=== PATIENT | female | born 1985 | race Caucasian/White ===

== ENCOUNTER 2017-03-10 20:54 | Emergency (ER) | payer BC, OTHER ==
[2017-03-10] MEDS ORDERED: ONDANSETRON 4 MG/2 ML VIAL IVP STA (21:47)
[2017-03-10] MEDS ORDERED: SODIUM CHLORIDE 0.9% 1,000 ML IV STA (21:47)
[2017-03-10] MEDS ORDERED: MAG HYDROX/AL HYDROX/SIMETH 30 ML, HYOSCYAMINE ELIXIR 10 ML, CIMETIDINE HCL 300 MG PO STA ×3 (22:05)
[2017-03-10 22:25] LABS: Basophils % (A) 0 %; CHCM 33.7; Eosinophils # (A) 0.2 k/uL (0-0.7); Eosinophils % (A) 2 %; HCT 43.2 % (34.0-46.0); HDW 2.64; HGB 14.7 gm/dL (11.4-16.0); Luc # (Auto) 0.21; Luc % (Auto) 2; Lymphocytes # (A) 2.5 k/uL (1.0-4.8); Lymphocytes % (A) 22 %; MCH 29.4 pg (25.0-35.0); MCHC 34.1 g/dL (31.0-37.0); MCV 86.4 fL (80.0-100.0); Mean Platelet Volume 8.3; Monocytes # (A) 0.7 k/uL (0-1.0); Monocytes % (A) 6 %; Neutrophils # (A) 7.6 k/uL (1.3-7.7); Neutrophils % (A) 68 %; RDW 13.6 % (11.5-15.5); WBC 11.2 k/uL (3.8-10.6); WBC (Perox) 10.76
[2017-03-10 22:29] LABS: Appearance,Urine Clear (Clear); Bacteria,Urine Occasional /hpf; Bilirubin,Urine Negative (Negative); Glucose,Urine (UA) Negative (Negative); Ketones,Urine 1+ (Negative); Leukocyte Esterase,Urine Negative (Negative); Mucus,Urine Rare /hpf; Nitrite,Urine Negative (Negative); Particle Count 2077; Protein,Urine Negative (Negative); RBC,Urine 1 /hpf (0-5); Specific Gravity,Urine 1.005 (1.001-1.035); Squamous Epithelial Cell,Urine 2 /hpf (0-4); UA Billing (MACRO vs. MICRO) MICRO; Urobilinogen,Urine <2.0 mg/dL (<2.0); WBC,Urine <1 /hpf (0-5)
[2017-03-10 22:47] LABS: ALT 30 U/L (9-52); AST 21 U/L (14-36); Alkaline Phosphatase 50 U/L (38-126); Amylase 43 U/L (30-110); Anion Gap 12 mmol/L; Blood Urea Nitrogen 8 mg/dL (7-17); Calcium 9.5 mg/dL (8.4-10.2); Carbon Dioxide 23 mmol/L (22-30); Chloride 106 mmol/L (98-107); Glucose 89 mg/dL (74-99); Non-African American GFR(MDRD) >60 (>60 ml/min/1.73 sqM); Sodium 141 mmol/L (137-145); Total Bilirubin 0.7 mg/dL (0.2-1.3); Total Protein 7.5 g/dL (6.3-8.2)
[2017-03-10 22:48] LABS: Potassium 4.2 mmol/L (3.5-5.1)
[2017-03-10 23:27] VITALS: BP 126/69; PULSE 57; RESP 16; TEMP 98.6
--- NOTE | 2017-03-10 23:34 | ED ---
Nausea/Vomiting/Diarrhea HPI - General Chief complaint: Nausea/Vomiting/Diarrhea Stated complaint: HBP, abd pain Time Seen by Provider: 03/10/17 21:46 Source: patient, RN notes reviewed Mode of arrival: ambulatory Limitations: no limitations - History of Present Illness Initial comments: 31-year-old female presents emergency Department chief complaint of abdominal pain. Patient states she's had left upper quadrant abdominal pain, epigastric pain. Patient states that this it's worse when she eats. Patient states she has severe heartburn does not take any medications for this. Patient has a chest pain or shortness breath. Patient states she is concerned as she has high blood pressure and states that she was worried about it which makes her blood pressure worse. Patient states she takes lisinopril 10 mg daily. Patient denies any diarrhea constipation. Denies any fevers, chills. Patient states she has no other complaints - Related Data Home Medications Medication Instructions Recorded Confirmed ALPRAZolam [Xanax] 0.5 mg PO DAILY PRN 03/10/17 03/10/17 Lisinopril [Prinivil] 5 mg PO DAILY 03/10/17 03/10/17 Previous Rx's Medication Instructions Recorded Omeprazole 40 mg PO DAILY #30 capsule. 03/10/17 Allergies Allergy/AdvReac Type Severity Reaction Status Date / Time amoxicillin trihydrate Allergy Rash/Hives Verified 03/10/17 21:47 [From Augmentin] potassium clavulanate Allergy Rash/Hives Verified 03/10/17 21:47 [From Augmentin] Review of Systems ROS Statement: Those systems with pertinent positive or pertinent negative responses have been documented in the HPI. ROS Other: All systems not noted in ROS Statement are negative. Past Medical History Past Medical History: Hypertension History of Any Multi-Drug Resistant Organisms: None Reported Past Surgical History: Adenoidectomy, Section, Tonsillectomy Past Anesthesia/Blood Transfusion Reactions: Postoperative Nausea & Vomiting ( PONV) Past Psychological History: Anxiety, Depression Smoking Status: Current every day smoker Past Alcohol Use History: None Reported Past Drug Use History: None Reported - Past Family History Mother Family Medical History: Hypertension General Exam Limitations: no limitations General appearance: alert, in no apparent distress Head exam: Present: atraumatic, normocephalic, normal inspection Eye exam: Present: normal appearance, PERRL, EOMI. Absent: scleral icterus, conjunctival injection, periorbital swelling Respiratory exam: Present: normal lung sounds bilaterally. Absent: respiratory distress, wheezes, rales, rhonchi, stridor Cardiovascular Exam: Present: regular rate, normal rhythm, normal heart sounds. Absent: systolic murmur, diastolic murmur, rubs, gallop, clicks GI/Abdominal exam: Present: soft, tenderness (Moderate left upper quadrant tenderness, epigastric tenderness), normal bowel sounds. Absent: distended, guarding, rebound, rigid Back exam: Absent: CVA tenderness (R), CVA tenderness (L) Course Vital Signs 03/10/17 03/10/17 21:01 22:07 Temperature 99.0 F 98.6 F Pulse Rate 67 57 L Respiratory 18 16 Rate Blood Pressure 154/84 126/69 O2 Sat by Pulse 96 99 Oximetry Medical Decision Making - Medical Decision Making 31-year-old female presented for upper abdominal pain. Patient appears to have GERD, gastritis. Patient does feel better after GI cocktail. Patient lab work within normal limits. Patient will be discharged at this time. - Lab Data Result diagrams: 03/10/17 22:12 03/10/17 22:12 Lab Results 03/10/17 03/10/17 03/10/17 Range/Units 22:12 22:12 22:12 WBC 11.2 H (3.8-10.6) k/uL RBC 5.00 (3.80-5.40) m/uL Hgb 14.7 (11.4-16.0) gm/dL Hct 43.2 (34.0-46.0) % MCV 86.4 (80.0-100.0) fL MCH 29.4 (25.0-35.0) pg MCHC 34.1 (31.0-37.0) g/dL RDW 13.6 (11.5-15.5) % Plt Count 213 (150-450) k/uL Neutrophils % 68 % Lymphocytes % 22 % Monocytes % 6 % Eosinophils % 2 % Basophils % 0 % Neutrophils # 7.6 (1.3-7.7) k/uL Lymphocytes # 2.5 (1.0-4.8) k/uL Monocytes # 0.7 (0-1.0) k/uL Eosinophils # 0.2 (0-0.7) k/uL Basophils # 0.0 (0-0.2) k/uL Sodium 141 (137-145) mmol/L Potassium 4.2 (3.5-5.1) mmol/L Chloride 106 (98-107) mmol/L Carbon Dioxide 23 (22-30) mmol/L Anion Gap 12 mmol/L BUN 8 (7-17) mg/dL Creatinine 0.60 (0.52-1.04) mg/dL Est GFR (MDRD) Af Amer >60 (>60 ml/min/1.73 sqM) Est GFR (MDRD) Non-Af >60 (>60 ml/min/1.73 sqM) Glucose 89 (74-99) mg/dL Calcium 9.5 (8.4-10.2) mg/dL Total Bilirubin 0.7 (0.2-1.3) mg/dL AST 21 (14-36) U/L ALT 30 (9-52) U/L Alkaline Phosphatase 50 (38-126) U/L Total Protein 7.5 (6.3-8.2) g/dL Albumin 4.5 (3.5-5.0) g/dL Amylase 43 (30-110) U/L Lipase 53 (23-300) U/L Urine Color Urine Appearance (Clear) Urine pH (5.0-8.0) Ur Specific [place] (1.001-1.035) Urine Protein (Negative) Urine Glucose (UA) (Negative) Urine Ketones (Negative) Urine Blood (Negative) Urine Nitrite (Negative) Urine Bilirubin (Negative) Urine Urobilinogen (<2.0) mg/dL Ur Leukocyte Esterase (Negative) Urine RBC (0-5) /hpf Urine WBC (0-5) /hpf Ur Squamous Epith Cells (0-4) /hpf Urine Bacteria (None) /hpf Urine Mucus (None) /hpf Urine HCG, Qual Not Detected (Not Detectd) 03/10/17 Range/Units 22:12 WBC (3.8-10.6) k/uL RBC (3.80-5.40) m/uL Hgb (11.4-16.0) gm/dL Hct (34.0-46.0) % MCV (80.0-100.0) fL MCH (25.0-35.0) pg MCHC (31.0-37.0) g/dL RDW (11.5-15.5) % Plt Count (150-450) k/uL Neutrophils % % Lymphocytes % % Monocytes % % Eosinophils % % Basophils % % Neutrophils # (1.3-7.7) k/uL Lymphocytes # (1.0-4.8) k/uL Monocytes # (0-1.0) k/uL Eosinophils # (0-0.7) k/uL Basophils # (0-0.2) k/uL Sodium (137-145) mmol/L Potassium (3.5-5.1) mmol/L Chloride (98-107) mmol/L Carbon Dioxide (22-30) mmol/L Anion Gap mmol/L BUN (7-17) mg/dL Creatinine (0.52-1.04) mg/dL Est GFR (MDRD) Af Amer (>60 ml/min/1.73 sqM) Est GFR (MDRD) Non-Af (>60 ml/min/1.73 sqM) Glucose (74-99) mg/dL Calcium (8.4-10.2) mg/dL Total Bilirubin (0.2-1.3) mg/dL AST (14-36) U/L ALT (9-52) U/L Alkaline Phosphatase (38-126) U/L Total Protein (6.3-8.2) g/dL Albumin (3.5-5.0) g/dL Amylase (30-110) U/L Lipase (23-300) U/L Urine Color Light Yellow Urine Appearance Clear (Clear) Urine pH 5.0 (5.0-8.0) Ur Specific [place] 1.005 (1.001-1.035) Urine Protein Negative (Negative) Urine Glucose (UA) Negative (Negative) Urine Ketones 1+ H (Negative) Urine Blood Small H (Negative) Urine Nitrite Negative (Negative) Urine Bilirubin Negative (Negative) Urine Urobilinogen <2.0 (<2.0) mg/dL Ur Leukocyte Esterase Negative (Negative) Urine RBC 1 (0-5) /hpf Urine WBC <1 (0-5) /hpf Ur Squamous Epith Cells 2 (0-4) /hpf Urine Bacteria Occasional H (None) /hpf Urine Mucus Rare H (None) /hpf Urine HCG, Qual (Not Detectd) Disposition Clinical Impression: Gastritis, GERD (gastroesophageal reflux disease) Disposition: HOME SELF-CARE Condition: Stable Instructions: Gastritis (ED) Additional Instructions: Please return to the Emergency Department if symptoms worsen or any other concerns. Prescriptions: Omeprazole 40 mg PO DAILY #30 capsule. Time of Disposition: 23:33
== END 2017-03-10 23:52 | disposition home or self-care (01) ==
LOC: EC 20:54
DX: K29.70 Gastritis, unspecified, without bleeding (principal); K21.9 Gastro-esophageal reflux disease without esophagitis; I10 Essential (primary) hypertension; F32.9 Major depressive disorder, single episode, unspecified; F41.9 Anxiety disorder, unspecified; F17.200 Nicotine dependence, unspecified, uncomplicated; Z79.899 Other long term (current) drug therapy; Z88.0 Allergy status to penicillin
CPT/HCPCS: 36415; 80053; 82150; 83690; 85025; 81001; 81025; 99284; 96374; 96361; J2405

== ENCOUNTER 2017-03-19 11:41 | Emergency (ER) | payer OTHER ==
[2017-03-19 12:00] VITALS: RESP 18
[2017-03-19] MEDS ORDERED: SODIUM CHLORIDE 0.9% 1,000 ML IV ONE (13:28)
[2017-03-19] MEDS ORDERED: MECLIZINE 12.5 MG TAB PO STA (13:42)
--- NOTE | 2017-03-19 13:53 | ED ---
General Adult HPI - General Chief complaint: Dizziness Stated complaint: DIZZINESS, BLOOD PRESSURE ISSUE Time Seen by Provider: 03/19/17 13:27 Source: patient, RN notes reviewed, old records reviewed Mode of arrival: wheelchair Limitations: no limitations - History of Present Illness Initial comments: 31-year-old female presenting for dizziness. Patient states she felt like she is having lightheadedness like she was going to pass out. She states that she is concerned that this is due to her blood pressure. She states over the past month been in the ER as well as her PCPs office due to changing blood pressures. She is on lisinopril 5 mg, and was increased to 10 mg a few days ago by her PCP. She states she has not taken the increased dose yet at this point. She denies any chest pain or shortness of breath. She denies syncope. - Related Data Home Medications Medication Instructions Recorded Confirmed ALPRAZolam [Xanax] 0.5 mg PO DAILY PRN 03/10/17 03/19/17 Lisinopril [Prinivil] 5 mg PO DAILY 03/10/17 03/19/17 Previous Rx's Medication Instructions Recorded Omeprazole 40 mg PO DAILY #30 capsule. 03/10/17 Meclizine [Antivert] 25 mg PO Q6HR PRN #16 tab 03/19/17 Allergies Allergy/AdvReac Type Severity Reaction Status Date / Time amoxicillin trihydrate Allergy Rash/Hives Verified 03/10/17 21:47 [From Augmentin] potassium clavulanate Allergy Rash/Hives Verified 03/10/17 21:47 [From Augmentin] Review of Systems ROS Statement: Those systems with pertinent positive or pertinent negative responses have been documented in the HPI. ROS Other: All systems not noted in ROS Statement are negative. Past Medical History Past Medical History: Hypertension History of Any Multi-Drug Resistant Organisms: None Reported Past Surgical History: Adenoidectomy, Section, Tonsillectomy Past Anesthesia/Blood Transfusion Reactions: Postoperative Nausea & Vomiting ( PONV) Past Psychological History: Anxiety, Depression Smoking Status: Current every day smoker Past Alcohol Use History: None Reported Past Drug Use History: None Reported - Past Family History Mother Family Medical History: Hypertension General Exam - General Exam Comments Initial Comments: General: Awake and Alert. No acute distress. Does not appear acutely ill. Obese. Eyes: KHANG, EOM intact. No nystagmus. No scleral icterus. HENT: Atraumatic, normocephalic. Mucous membranes moist. Trachea midline. Neck: The neck is supple, there is no tenderness or JVD. Cardiovascular: Regular rate and rhythm. No murmur, rub, or gallop is appreciated. Distal pulses intact. Respiratory: Lungs are clear to auscultation bilaterally. No wheezes, rales, rhonchi. No respiratory distress. Gastrointestinal: Soft, Nontender. No rebound or guarding. Non-distended. No masses or organomegaly noted. No CVA tenderness. Musculoskeletal: No tenderness. Normal ROM. No gross deformity. No strength deficits. Neurological: A&Ox3. CN II-XII grossly intact, There are no obvious motor or sensory deficits. Coordination appears grossly intact. Speech is normal. Skin: Skin is warm and dry and no rashes or lesions are noted. Psychiatric: Cooperative. Appears anxious. Normal affect. Limitations: no limitations Course Vital Signs 03/19/17 03/19/17 11:58 15:45 Temperature 97.8 F 97.9 F Pulse Rate 71 64 Respiratory 18 18 Rate Blood Pressure 165/83 164/94 O2 Sat by Pulse 100 97 Oximetry EKG Findings - EKG Comments: EKG Findings:: EKG 13:46. Sinus rhythm. Rate 49. NE 150. QRS 106. QT/QTC 438/395. Normal axis. No STEMI. Normal EKG. Medical Decision Making - Medical Decision Making 31-year-old female presenting for dizziness and hypertension. Patient with noted hypertension. She does have a history of hypertension and is on lisinopril for this. She was recently increased on her dose of this but has not started the new dose yet. Exam is grossly unremarkable. There are no focal neurological deficits. Patient is concerned she is having a stroke. Reassured that this is very unlikely given her benign physical exam and overall low risk factors. Laboratory grossly unremarkable. UA without evidence of infection. Patient was given fluids and Antivert. On reevaluation she states she is feeling improved. Discussed that her blood pressure fluctuations and symptoms are more likely consistent with anxiety. However, discussed that she does have underlying hypertension which does require further management. Recommend increasing her dose to the 10 mg lisinopril daily. Discussed close follow-up with her PCP for further BP management. Rx for antivert provided as this helped in the ED. Discussed concerning signs symptoms for immediate return to the ED. Patient and family agreeable to plan and discharge home. - Lab Data Result diagrams: 03/19/17 14:00 03/19/17 14:00 Lab Results 03/19/17 03/19/17 03/19/17 Range/Units 14:00 14:00 14:00 WBC 9.5 (3.8-10.6) k/uL RBC 5.00 (3.80-5.40) m/uL Hgb 14.4 (11.4-16.0) gm/dL Hct 44.8 (34.0-46.0) % MCV 89.7 (80.0-100.0) fL MCH 28.9 (25.0-35.0) pg MCHC 32.2 (31.0-37.0) g/dL RDW 13.6 (11.5-15.5) % Plt Count 225 (150-450) k/uL Neutrophils % 74 % Lymphocytes % 17 % Monocytes % 6 % Eosinophils % 1 % Basophils % 1 % Neutrophils # 7.0 (1.3-7.7) k/uL Lymphocytes # 1.6 (1.0-4.8) k/uL Monocytes # 0.5 (0-1.0) k/uL Eosinophils # 0.1 (0-0.7) k/uL Basophils # 0.1 (0-0.2) k/uL Sodium 139 (137-145) mmol/L Potassium 4.2 (3.5-5.1) mmol/L Chloride 106 (98-107) mmol/L Carbon Dioxide 22 (22-30) mmol/L Anion Gap 11 mmol/L BUN 8 (7-17) mg/dL Creatinine 0.67 (0.52-1.04) mg/dL Est GFR (MDRD) Af Amer >60 (>60 ml/min/1.73 sqM) Est GFR (MDRD) Non-Af >60 (>60 ml/min/1.73 sqM) Glucose 94 (74-99) mg/dL Calcium 9.6 (8.4-10.2) mg/dL TSH 0.539 (0.465-4.680) mIU/L Urine Color Urine Appearance (Clear) Urine pH (5.0-8.0) Ur Specific [place] (1.001-1.035) Urine Protein (Negative) Urine Glucose (UA) (Negative) Urine Ketones (Negative) Urine Blood (Negative) Urine Nitrite (Negative) Urine Bilirubin (Negative) Urine Urobilinogen (<2.0) mg/dL Ur Leukocyte Esterase (Negative) Urine RBC (0-5) /hpf Urine WBC (0-5) /hpf Ur Squamous Epith Cells (0-4) /hpf Urine HCG, Qual Not Detected (Not Detectd) 03/19/17 Range/Units 14:00 WBC (3.8-10.6) k/uL RBC (3.80-5.40) m/uL Hgb (11.4-16.0) gm/dL Hct (34.0-46.0) % MCV (80.0-100.0) fL MCH (25.0-35.0) pg MCHC (31.0-37.0) g/dL RDW (11.5-15.5) % Plt Count (150-450) k/uL Neutrophils % % Lymphocytes % % Monocytes % % Eosinophils % % Basophils % % Neutrophils # (1.3-7.7) k/uL Lymphocytes # (1.0-4.8) k/uL Monocytes # (0-1.0) k/uL Eosinophils # (0-0.7) k/uL Basophils # (0-0.2) k/uL Sodium (137-145) mmol/L Potassium (3.5-5.1) mmol/L Chloride (98-107) mmol/L Carbon Dioxide (22-30) mmol/L Anion Gap mmol/L BUN (7-17) mg/dL Creatinine (0.52-1.04) mg/dL Est GFR (MDRD) Af Amer (>60 ml/min/1.73 sqM) Est GFR (MDRD) Non-Af (>60 ml/min/1.73 sqM) Glucose (74-99) mg/dL Calcium (8.4-10.2) mg/dL TSH (0.465-4.680) mIU/L Urine Color Colorless Urine Appearance Clear (Clear) Urine pH 5.5 (5.0-8.0) Ur Specific [place] 1.001 (1.001-1.035) Urine Protein Negative (Negative) Urine Glucose (UA) Negative (Negative) Urine Ketones Negative (Negative) Urine Blood Moderate H (Negative) Urine Nitrite Negative (Negative) Urine Bilirubin Negative (Negative) Urine Urobilinogen <2.0 (<2.0) mg/dL Ur Leukocyte Esterase Negative (Negative) Urine RBC <1 (0-5) /hpf Urine WBC <1 (0-5) /hpf Ur Squamous Epith Cells <1 (0-4) /hpf Urine HCG, Qual (Not Detectd) - EKG Data -: EKG Interpreted by Me EKG shows normal: sinus rhythm Rate: normal Disposition Clinical Impression: Dizziness, HTN (hypertension), Anxiety Disposition: HOME SELF-CARE Condition: Stable Instructions: Dizziness (ED), Chronic Hypertension (ED), Anxiety (ED) Additional Instructions: Please start your higher dose of Lisinopril. Prescriptions: Meclizine [Antivert] 25 mg PO Q6HR PRN #16 tab PRN Reason: dizziness Referrals: Khoa Chiu MD [Primary Care Provider] - 1-2 days Time of Disposition: 15:35
[2017-03-19 14:21] LABS: Basophils # (A) 0.1 k/uL (0-0.2); Basophils % (A) 1 %; CH 29.8; CHCM 33.3; Eosinophils # (A) 0.1 k/uL (0-0.7); Eosinophils % (A) 1 %; HCT 44.8 % (34.0-46.0); HGB 14.4 gm/dL (11.4-16.0); Luc # (Auto) 0.16; Luc % (Auto) 2; Lymphocytes # (A) 1.6 k/uL (1.0-4.8); Lymphocytes % (A) 17 %; MCH 28.9 pg (25.0-35.0); MCHC 32.2 g/dL (31.0-37.0); MCV 89.7 fL (80.0-100.0); Mean Platelet Volume 8.9; Monocytes # (A) 0.5 k/uL (0-1.0); Monocytes % (A) 6 %; Neutrophils % (A) 74 %; RDW 13.6 % (11.5-15.5); WBC 9.5 k/uL (3.8-10.6); WBC (Perox) 9.85
[2017-03-19 14:27] LABS: Appearance,Urine Clear (Clear); Bilirubin,Urine Negative (Negative); Glucose,Urine (UA) Negative (Negative); Ketones,Urine Negative (Negative); Leukocyte Esterase,Urine Negative (Negative); Nitrite,Urine Negative (Negative); PH, Urine 5.5 (5.0-8.0); Particle Count 379; Protein,Urine Negative (Negative); RBC,Urine <1 /hpf (0-5); Specific Gravity,Urine 1.001 (1.001-1.035); Squamous Epithelial Cell,Urine <1 /hpf (0-4); UA Billing (MACRO vs. MICRO) MICRO; Urobilinogen,Urine <2.0 mg/dL (<2.0); WBC,Urine <1 /hpf (0-5)
[2017-03-19 14:33] LABS: Anion Gap 11 mmol/L; Blood Urea Nitrogen 8 mg/dL (7-17); Calcium 9.6 mg/dL (8.4-10.2); Carbon Dioxide 22 mmol/L (22-30); Chloride 106 mmol/L (98-107); Glucose 94 mg/dL (74-99); Non-African American GFR(MDRD) >60 (>60 ml/min/1.73 sqM); Sodium 139 mmol/L (137-145)
[2017-03-19 14:34] LABS: Potassium 4.2 mmol/L (3.5-5.1)
[2017-03-19 15:46] VITALS: BP 164/94; PULSE 64; TEMP 97.9
== END 2017-03-19 15:46 | disposition home or self-care (01) ==
LOC: EC 11:41
DX: I10 Essential (primary) hypertension (principal); F41.9 Anxiety disorder, unspecified; E66.9 Obesity, unspecified; F17.200 Nicotine dependence, unspecified, uncomplicated; Z79.899 Other long term (current) drug therapy; Z88.0 Allergy status to penicillin; Z82.49 Family history of ischemic heart disease and other diseases of the circulatory system; Z68.38 Body mass index [BMI] 38.0-38.9, adult
CPT/HCPCS: 36415; 80048; 81001; 81025; 84443; 85025; 93005; 96360; 96361; 99284

== ENCOUNTER 2017-03-20 09:11 | Emergency (ER) | payer OTHER ==
[2017-03-20 09:29] VITALS: TEMP 97.8
--- NOTE | 2017-03-20 11:23 | ED ---
General Adult HPI - General Chief complaint: Psychiatric Symptoms Stated complaint: MENTAL HEALTH, NERVOUS BREAKDOWN Time Seen by Provider: 03/20/17 09:51 Source: patient, RN notes reviewed Mode of arrival: ambulatory Limitations: no limitations - History of Present Illness Initial comments: Patient 31-year-old female who presents emergency room today with a chief complaint of feeling like she's having a nervous breakdown. She does admit the past 2 weeks she's felt like her blood pressure up and down. She states she's had anxiety. She admits that she's felt numbness tingling to her arms and legs at times. States symptoms seem to come and go. She states she's had more stress. States been dealing with blood pressure being up and down his been having addressed by the family doctor started new medication dose. Patient's been seen here in the emergency room for these complaints most recently just yesterday. At this time she feels that is not beneficial to have any other lab work done. She states she would like to talk to somebody about these feelings. Patient denies any recent fever, chills, shortness of breath, chest pain, back pain, abdominal pain, nausea or vomiting, dysuria or hematuria, constipation or diarrhea, headaches or visual changes, or any other complaints. - Related Data Home Medications Medication Instructions Recorded Confirmed ALPRAZolam [Xanax] 0.5 mg PO DAILY PRN 03/10/17 03/20/17 Lisinopril [Prinivil] 5 mg PO DAILY 03/10/17 03/20/17 Previous Rx's Medication Instructions Recorded Omeprazole 40 mg PO DAILY #30 capsule. 03/10/17 Meclizine [Antivert] 25 mg PO Q6HR PRN #16 tab 03/19/17 Allergies Allergy/AdvReac Type Severity Reaction Status Date / Time amoxicillin trihydrate Allergy Rash/Hives Verified 03/20/17 10:02 [From Augmentin] potassium clavulanate Allergy Rash/Hives Verified 03/20/17 10:02 [From Augmentin] Review of Systems ROS Statement: Those systems with pertinent positive or pertinent negative responses have been documented in the HPI. ROS Other: All systems not noted in ROS Statement are negative. Past Medical History Past Medical History: Hypertension History of Any Multi-Drug Resistant Organisms: None Reported Past Surgical History: Adenoidectomy, Section, Tonsillectomy Past Anesthesia/Blood Transfusion Reactions: Postoperative Nausea & Vomiting ( PONV) Past Psychological History: Anxiety, Depression Smoking Status: Current every day smoker Past Alcohol Use History: None Reported Past Drug Use History: None Reported - Past Family History Mother Family Medical History: Hypertension General Exam - General Exam Comments Initial Comments: General: The patient is awake and alert, in no distress, and does not appear acutely ill. Eye: Pupils are equal, round and reactive to light, extra-ocular movements are intact. No nystagmus. There is normal conjunctiva bilaterally. No signs of icterus. Ears, nose, mouth and throat: There are moist mucous membranes and no oral lesions. Neck: The neck is supple, there is no tenderness or JVD. Cardiovascular: There is a regular rate and rhythm. No murmur, rub or gallop is appreciated. Respiratory: Lungs are clear to auscultation, respirations are non-labored, breath sounds are equal. No wheezes, stridor, rales, or rhonchi. Gastrointestinal: Soft, non-distended, non-tender abdomen without masses or organomegaly noted. There is no rebound or guarding present. No CVA tenderness. Bowel sounds are unremarkable. Musculoskeletal: Normal ROM, no tenderness. Strength 5/5. Sensation intact. Pulses equal bilaterally 2+. Neurological: A&O x 3. CN II-XII intact, There are no obvious motor or sensory deficits. Coordination appears grossly intact. Speech is normal. Skin: Skin is warm and dry and no rashes or lesions are noted. Psychiatric: Cooperative Limitations: no limitations Course Vital Signs 03/20/17 03/20/17 09:24 10:47 Temperature 97.8 F Pulse Rate 72 Respiratory 20 Rate Blood Pressure 177/88 O2 Sat by Pulse 94 L Oximetry - Reevaluation(s) Reevaluation #1: 03/20/17 10:02 patient examined here the emergency room. Options were discussed with patient about further labs and IV. She states she been drinking plenty of water does not feel that she's dehydrated. She states declined any other testing. She is agreeable to talk to psych services. Her labs and chart were reviewed from 1 day ago Medical Decision Making - Medical Decision Making Patient reexamined at this time shows no signs of distress. Patient's been seen by mental health. They recommended outpatient follow-up outpatient. Patient is also advised to follow-up with her family doctor. Advised to continue to keep a long blood pressures. Advised to continue Antivert that was prescribed to her yesterday for some of the symptoms. Advised return for any other concerns. Patient mother at bedside state understanding. - Lab Data Lab Results 03/20/17 Range/Units 11:05 Urine Opiates Screen Not Detected (NotDetected) Ur Oxycodone Screen Not Detected (NotDetected) Urine Methadone Screen Not Detected (NotDetected) Ur Propoxyphene Screen Not Detected (NotDetected) Ur Barbiturates Screen Not Detected (NotDetected) U Tricyclic Antidepress Not Detected (NotDetected) Ur Phencyclidine Scrn Not Detected (NotDetected) Ur Amphetamines Screen Not Detected (NotDetected) U Methamphetamines Scrn Not Detected (NotDetected) U Benzodiazepines Scrn Not Detected (NotDetected) Urine Cocaine Screen Not Detected (NotDetected) U Marijuana (THC) Screen Not Detected (NotDetected) Disposition Clinical Impression: HTN (hypertension), Anxiety Disposition: HOME SELF-CARE Condition: Good Instructions: Anxiety (ED) Additional Instructions: Please use medications that were previously prescribed. Please follow-up the family doctor and keep a log of blood pressure as discussed. Please return to emergency room if the symptoms increase or worsen or for any other concerns. Time of Disposition: 12:47
[2017-03-20 13:30] VITALS: BP 143/73; PULSE 58; RESP 18
== END 2017-03-20 13:30 | disposition home or self-care (01) ==
LOC: EC 09:11
DX: I10 Essential (primary) hypertension (principal); F41.9 Anxiety disorder, unspecified; F32.9 Major depressive disorder, single episode, unspecified; F17.200 Nicotine dependence, unspecified, uncomplicated; Z79.899 Other long term (current) drug therapy; Z88.0 Allergy status to penicillin
CPT/HCPCS: 80306; 82075; 99284

== ENCOUNTER → 2017-05-01 | Outpatient (CLI) | payer OTHER ==
[2017-05-01 17:02] LABS: Basophils % (A) 0 %; CH 29.7; CHCM 34.2; Eosinophils # (A) 0.1 k/uL (0-0.7); Eosinophils % (A) 2 %; HCT 41.4 % (34.0-46.0); HDW 2.76; Luc # (Auto) 0.14; Luc % (Auto) 2; Lymphocytes # (A) 1.8 k/uL (1.0-4.8); Lymphocytes % (A) 28 %; MCH 29.5 pg (25.0-35.0); MCHC 33.8 g/dL (31.0-37.0); MCV 87.2 fL (80.0-100.0); Mean Platelet Volume 8.2; Monocytes # (A) 0.4 k/uL (0-1.0); Monocytes % (A) 6 %; Neutrophils # (A) 4.1 k/uL (1.3-7.7); Neutrophils % (A) 62 %; RBC 4.75 m/uL (3.80-5.40); RDW 13.1 % (11.5-15.5); WBC 6.5 k/uL (3.8-10.6); WBC (Perox) 6.83
--- NOTE | 2017-05-01 17:03 | XR ---
EXAMINATION TYPE: XR chest 2V DATE OF EXAM: 05/01/2017 COMPARISON: 09/20/2015 HISTORY: Left lower chest pain and shortness of breath TECHNIQUE: Frontal and lateral views of the chest are obtained. FINDINGS: There is no focal air space opacity, pleural effusion, or pneumothorax seen. The cardiac silhouette size is within normal limits. The osseous structures are intact. Minimal degenerative ch anges are appreciated of the visualized thoracic spine. IMPRESSION: No acute cardiopulmonary process.
[2017-05-01 17:30] LABS: ALT 41 U/L (9-52); AST 17 U/L (14-36); Alkaline Phosphatase 47 U/L (38-126); Anion Gap 9 mmol/L; Blood Urea Nitrogen 8 mg/dL (7-17); Calcium 9.5 mg/dL (8.4-10.2); Carbon Dioxide 29 mmol/L (22-30); Chloride 106 mmol/L (98-107); Glucose 91 mg/dL (74-99); Non-African American GFR(MDRD) >60 (>60 ml/min/1.73 sqM); Potassium 3.9 mmol/L (3.5-5.1); Sodium 144 mmol/L (137-145); Total Bilirubin 0.4 mg/dL (0.2-1.3); Total Protein 6.6 g/dL (6.3-8.2)
[2017-05-01 20:47] LABS: Hemoglobin A1C 5.1 % (4.2-6.1)
== END | disposition home or self-care (01) ==
LOC: LABWHC1 16:29
PROVIDERS: ATTEND Family Medicine
DX: J98.4 Other disorders of lung (principal); R10.9 Unspecified abdominal pain; I10 Essential (primary) hypertension
CPT/HCPCS: 36415; 71020; 80053; 83036; 83690; 84439; 84443; 85025; 86677

== ENCOUNTER 2017-08-01 13:28 | Emergency (ER) | payer OTHER ==
[2017-08-01] MEDS ORDERED: MORPHINE SULFATE 4 MG/ML SYRINGE IV STA (14:03)
[2017-08-01 14:36] LABS: Basophils % (A) 0 %; CH 29.4; CHCM 33.7; Eosinophils # (A) 0.1 k/uL (0-0.7); Eosinophils % (A) 2 %; HCT 41.8 % (34.0-46.0); HDW 2.69; HGB 14.2 gm/dL (11.4-16.0); Luc # (Auto) 0.11; Luc % (Auto) 2; Lymphocytes # (A) 1.8 k/uL (1.0-4.8); Lymphocytes % (A) 24 %; MCH 29.9 pg (25.0-35.0); MCHC 34.1 g/dL (31.0-37.0); MCV 87.6 fL (80.0-100.0); Mean Platelet Volume 8.9; Monocytes # (A) 0.4 k/uL (0-1.0); Monocytes % (A) 5 %; Neutrophils % (A) 68 %; RBC 4.77 m/uL (3.80-5.40); WBC 7.4 k/uL (3.8-10.6); WBC (Perox) 7.49
[2017-08-01 14:41] LABS: Partial Thromboplastin Time 23.9 sec (22.0-30.0); Prothrombin Time 10.2 sec (9.0-12.0)
[2017-08-01 14:44] LABS: ALT 30 U/L (9-52); AST 12 U/L (14-36); Alkaline Phosphatase 41 U/L (38-126); Anion Gap 7 mmol/L; Blood Urea Nitrogen 13 mg/dL (7-17); Calcium 9.3 mg/dL (8.4-10.2); Carbon Dioxide 27 mmol/L (22-30); Chloride 107 mmol/L (98-107); Glucose 85 mg/dL (74-99); Magnesium 1.9 mg/dL (1.6-2.3); Non-African American GFR(MDRD) >60 (>60 ml/min/1.73 sqM); Potassium 4.2 mmol/L (3.5-5.1); Sodium 141 mmol/L (137-145); Total Bilirubin 0.3 mg/dL (0.2-1.3); Total Protein 6.5 g/dL (6.3-8.2)
[2017-08-01 14:46] LABS: Appearance,Urine Clear (Clear); Bilirubin,Urine Negative (Negative); Glucose,Urine (UA) Negative (Negative); Ketones,Urine Negative (Negative); Leukocyte Esterase,Urine Negative (Negative); Nitrite,Urine Negative (Negative); Protein,Urine Negative (Negative); Specific Gravity,Urine 1.004 (1.001-1.035); UA Billing (MACRO vs. MICRO) CHEM; Urobilinogen,Urine <2.0 mg/dL (<2.0)
[2017-08-01] MEDS: ONDANSETRON 4 MG/2 ML VIAL IVP STA ×2 (14:46→14:49)
[2017-08-01] MEDS ORDERED: ACETAMINOPHEN TAB 500 MG TAB PO STA (14:50)
[2017-08-01] MEDS ORDERED: NITROGLYCERIN OINT 1 INCH/GM PACKET TOPICAL STA (14:51)
[2017-08-01 14:59] LABS: Creatine Kinase 39 U/L (30-135)
[2017-08-01 15:13] LABS: Creatine Kinase MB <0.2 ng/mL (0.0-2.4); Troponin I <0.012 ng/mL (0.000-0.034)
--- NOTE | 2017-08-01 15:19 | XR ---
EXAMINATION TYPE: XR chest 2V DATE OF EXAM: 08/01/2017 COMPARISON: 05/01/2017 TECHNIQUE: PA and lateral views submitted. HISTORY: Chest pain FINDINGS: Heart size stable. No pleural effusion or pneumothorax. No overt failure. Linear changes in the left suprahilar region. Hypertrophic and degenerative change of the spine. IMPRESSION: 1. Linear left perihilar changes may been the basis of atelectasis rather than early infiltrate. Nori elate clinically.
--- NOTE | 2017-08-01 15:31 | ED ---
Recheck HPI - General Chief Complaint: Recheck/Abnormal Lab/Rx Stated Complaint: HBP Time Seen by Provider: 08/01/17 13:41 Source: patient Mode of arrival: ambulatory Limitations: no limitations - History of Present Illness Initial Comments: ALLERGIES she is old female comes in with the high blood pressure, she has a history of hypertension mostly her blood pressure stays around 1:30 systolic with the lisinopril on board today her blood pressure was 186, she was feeling dizzy and she also had a chest pain also complaining about the pain in her left jaw, she denies any no pleuritic chest pain no abdominal pain no frequency urgency dysuria no sinus symptoms of TIA or CVA or. Chest pain been there for 2 days - Related Data Home Medications Medication Instructions Recorded Confirmed Lisinopril [Prinivil] 10 mg PO DAILY@1400 03/10/17 08/01/17 Allergies Allergy/AdvReac Type Severity Reaction Status Date / Time amoxicillin trihydrate Allergy Rash/Hives Verified 08/01/17 14:04 [From Augmentin] potassium clavulanate Allergy Rash/Hives Verified 08/01/17 14:04 [From Augmentin] Review of Systems ROS Statement: Those systems with pertinent positive or pertinent negative responses have been documented in the HPI. ROS Other: All systems not noted in ROS Statement are negative. Past Medical History Past Medical History: Hypertension History of Any Multi-Drug Resistant Organisms: None Reported Past Surgical History: Adenoidectomy, Section, Tonsillectomy Past Anesthesia/Blood Transfusion Reactions: Postoperative Nausea & Vomiting ( PONV) Past Psychological History: Anxiety, Depression Smoking Status: Current every day smoker Past Alcohol Use History: None Reported Past Drug Use History: None Reported - Past Family History Mother Family Medical History: Hypertension General Exam - General Exam Comments Initial Comments: General: The patient is awake and alert, in no distress, and does not appear acutely ill. Skin: Skin is warm and dry and no rashes or lesions are noted. Eye: Pupils are equal, round and reactive to light, extra-ocular movements are intact; there is normal conjunctiva bilaterally. Ears, nose, mouth and throat: There are moist mucous membranes and no oral lesions. Neck: The neck is supple, there is no tenderness or JVD. Cardiovascular: There is a regular rate and rhythm. No murmur, rub or gallop is appreciated. Respiratory: To auscultation bilateral, no wheezing no rhonchi no distress respiratory avendano noticed Gastrointestinal: Soft, non-distended, non-tender abdomen without masses or organomegaly noted. There is no rebound or guarding present. Bowel sounds are unremarkable. Back: There is no tenderness to palpation in the midline. There is no obvious deformity. Musculoskeletal: Normal ROM, no tenderness, There is no pedal edema. There is no calf tenderness or swelling. No cords were appreciated. Neurological: CN II-XII intact, Cranial nerves III through XII are intact. There are no obvious motor or sensory deficits. Coordination appears grossly intact. Speech is normal. Psychiatric: Cooperative, appropriate mood & affect, normal judgment. Limitations: no limitations Course Vital Signs 08/01/17 08/01/17 08/01/17 13:29 13:54 15:03 Temperature 97.4 F L Pulse Rate 61 56 L Respiratory 18 17 Rate Blood Pressure 186/84 170/82 160/83 O2 Sat by Pulse 100 99 Oximetry EKG is sinus bradycardia with sinus arrhythmia ventricular rate is 53 [place] interval is 164 QRS duration is 1 or 2 QT/QTc is 442/414 review of this EKG does not reveal any ST elevation OR depression She was reassessed at 11/14/1931, CBC, d-dimer, compressive metabolic panel, troponin, EKG and UA are all within normal range so is the chest x-ray. She is advised to follow with the all cardiology associates for further evaluation of for chest pain and better control of her blood pressure Medical Decision Making - Lab Data Result diagrams: 08/01/17 14:25 08/01/17 14:25 Lab Results 08/01/17 08/01/17 08/01/17 Range/Units 14:15 14:25 14:25 WBC 7.4 (3.8-10.6) k/uL RBC 4.77 (3.80-5.40) m/uL Hgb 14.2 (11.4-16.0) gm/dL Hct 41.8 (34.0-46.0) % MCV 87.6 (80.0-100.0) fL MCH 29.9 (25.0-35.0) pg MCHC 34.1 (31.0-37.0) g/dL RDW 13.0 (11.5-15.5) % Plt Count 195 (150-450) k/uL Neutrophils % 68 % Lymphocytes % 24 % Monocytes % 5 % Eosinophils % 2 % Basophils % 0 % Neutrophils # 5.0 (1.3-7.7) k/uL Lymphocytes # 1.8 (1.0-4.8) k/uL Monocytes # 0.4 (0-1.0) k/uL Eosinophils # 0.1 (0-0.7) k/uL Basophils # 0.0 (0-0.2) k/uL PT (9.0-12.0) sec INR (<1.2) APTT (22.0-30.0) sec Sodium (137-145) mmol/L Potassium (3.5-5.1) mmol/L Chloride (98-107) mmol/L Carbon Dioxide (22-30) mmol/L Anion Gap mmol/L BUN (7-17) mg/dL Creatinine (0.52-1.04) mg/dL Est GFR (MDRD) Af Amer (>60 ml/min/1.73 sqM) Est GFR (MDRD) Non-Af (>60 ml/min/1.73 sqM) Glucose (74-99) mg/dL Calcium (8.4-10.2) mg/dL Magnesium (1.6-2.3) mg/dL Total Bilirubin (0.2-1.3) mg/dL AST (14-36) U/L ALT (9-52) U/L Alkaline Phosphatase (38-126) U/L Total Creatine Kinase 39 (30-135) U/L CK-MB (CK-2) <0.2 (0.0-2.4) ng/mL CK-MB (CK-2) Rel Index Troponin I <0.012 (0.000-0.034) ng/mL Total Protein (6.3-8.2) g/dL Albumin (3.5-5.0) g/dL Urine Color Colorless Urine Appearance Clear (Clear) Urine pH 7.0 (5.0-8.0) Ur Specific [place] 1.004 (1.001-1.035) Urine Protein Negative (Negative) Urine Glucose (UA) Negative (Negative) Urine Ketones Negative (Negative) Urine Blood Negative (Negative) Urine Nitrite Negative (Negative) Urine Bilirubin Negative (Negative) Urine Urobilinogen <2.0 (<2.0) mg/dL Ur Leukocyte Esterase Negative (Negative) 08/01/17 08/01/17 Range/Units 14:25 14:25 WBC (3.8-10.6) k/uL RBC (3.80-5.40) m/uL Hgb (11.4-16.0) gm/dL Hct (34.0-46.0) % MCV (80.0-100.0) fL MCH (25.0-35.0) pg MCHC (31.0-37.0) g/dL RDW (11.5-15.5) % Plt Count (150-450) k/uL Neutrophils % % Lymphocytes % % Monocytes % % Eosinophils % % Basophils % % Neutrophils # (1.3-7.7) k/uL Lymphocytes # (1.0-4.8) k/uL Monocytes # (0-1.0) k/uL Eosinophils # (0-0.7) k/uL Basophils # (0-0.2) k/uL PT 10.2 (9.0-12.0) sec INR 1.0 (<1.2) APTT 23.9 (22.0-30.0) sec Sodium 141 (137-145) mmol/L Potassium 4.2 (3.5-5.1) mmol/L Chloride 107 (98-107) mmol/L Carbon Dioxide 27 (22-30) mmol/L Anion Gap 7 mmol/L BUN 13 (7-17) mg/dL Creatinine 0.70 (0.52-1.04) mg/dL Est GFR (MDRD) Af Amer >60 (>60 ml/min/1.73 sqM) Est GFR (MDRD) Non-Af >60 (>60 ml/min/1.73 sqM) Glucose 85 (74-99) mg/dL Calcium 9.3 (8.4-10.2) mg/dL Magnesium 1.9 (1.6-2.3) mg/dL Total Bilirubin 0.3 (0.2-1.3) mg/dL AST 12 L (14-36) U/L ALT 30 (9-52) U/L Alkaline Phosphatase 41 (38-126) U/L Total Creatine Kinase (30-135) U/L CK-MB (CK-2) (0.0-2.4) ng/mL CK-MB (CK-2) Rel Index Troponin I (0.000-0.034) ng/mL Total Protein 6.5 (6.3-8.2) g/dL Albumin 4.1 (3.5-5.0) g/dL Urine Color Urine Appearance (Clear) Urine pH (5.0-8.0) Ur Specific [place] (1.001-1.035) Urine Protein (Negative) Urine Glucose (UA) (Negative) Urine Ketones (Negative) Urine Blood (Negative) Urine Nitrite (Negative) Urine Bilirubin (Negative) Urine Urobilinogen (<2.0) mg/dL Ur Leukocyte Esterase (Negative) Disposition Clinical Impression: Hypertension, Chest pain Disposition: HOME SELF-CARE Condition: Good Instructions: Chronic Hypertension (ED) Additional Instructions: She is advised to continue to do simple 10 mg by mouth daily, she is also advised to keep a log of her blood pressure once or twice a day for the next 7 days and follow-up with family medicine see if she needs any adjustment in her antihypertensive therapy Referrals: Galen Lizarraga MD [Primary Care Provider] - 1-2 days Cole Silver MD [STAFF PHYSICIAN] - 1-2 days
[2017-08-01 16:16] VITALS: BP 132/76; PULSE 66; RESP 18; TEMP 98.6
== END 2017-08-01 16:10 | disposition home or self-care (01) ==
LOC: EC 13:28
DX: I10 Essential (primary) hypertension (principal); R07.9 Chest pain, unspecified; F17.200 Nicotine dependence, unspecified, uncomplicated; Z79.899 Other long term (current) drug therapy; Z88.0 Allergy status to penicillin; Z53.20 Procedure and treatment not carried out because of patient's decision for unspecified reasons
CPT/HCPCS: 36415; 71020; 80053; 81003; 82550; 82553; 83735; 84484; 85025; 85610; 85730; 93005; 99284

== ENCOUNTER → 2017-08-25 | Outpatient (CLI) | payer OTHER ==
--- NOTE | 2017-08-29 19:23 | HM ---
HOLTER MONITOR REPORT [id number] Holter monitor shows sinus mechanism, nighttime bradycardia. No significant arrhythmias noted. No tachyarrhythmias. Patient complains of chest pain, stomach pain, lightheadedness and shoulder pain corresponding to sinus rhythm only. [id number] / IJN: [id number] /
== END | disposition home or self-care (01) ==
LOC: RADECHMAIN 13:02
PROVIDERS: ATTEND Family Medicine
DX: I10 Essential (primary) hypertension (principal)
CPT/HCPCS: 93225; 93226

== ENCOUNTER 2018-03-22 12:42 | Emergency (ER) | payer BC, OTHER ==
[2018-03-22 13:06] VITALS: TEMP 98
[2018-03-22] MEDS ORDERED: KETOROLAC 60 MG/2 ML VIAL IM STA (13:22)
[2018-03-22] MEDS ORDERED: ORPHENADRINE 30 MG/ML 2 ML VIAL IM STA (13:22)
--- NOTE | 2018-03-22 13:33 | ED ---
General Adult HPI - General Chief complaint: ENT Stated complaint: Ear & shoulder pain Time Seen by Provider: 03/22/18 13:00 Source: patient, RN notes reviewed Mode of arrival: ambulatory Limitations: no limitations - History of Present Illness Initial comments: This is a 32-year-old female who presents emergency Department complaining of left ear pain. Patient states she also has left trapezius muscle pain that goes up into the neck and out to the shoulder. Patient denies any injury patient states it feels muscular but movement does not seem to make it worse. Patient denies any fever chills patient denies any swelling patient denies any redness. Patient denies any injury or trauma. Patient denies any sore throat. Patient denies any other upper respiratory symptoms. - Related Data Home Medications Medication Instructions Recorded Confirmed Lisinopril [Prinivil] 10 mg PO DAILY@1400 03/10/17 08/01/17 Previous Rx's Medication Instructions Recorded Cyclobenzaprine [Flexeril] 10 mg PO TID #20 tab 03/22/18 Ibuprofen [Motrin] 600 mg PO Q6HR PRN #20 tab 03/22/18 Allergies Allergy/AdvReac Type Severity Reaction Status Date / Time amoxicillin trihydrate Allergy Rash/Hives Verified 03/22/18 13:06 [From Augmentin] potassium clavulanate Allergy Rash/Hives Verified 03/22/18 13:06 [From Augmentin] Review of Systems ROS Statement: Those systems with pertinent positive or pertinent negative responses have been documented in the HPI. ROS Other: All systems not noted in ROS Statement are negative. Past Medical History Past Medical History: Hypertension History of Any Multi-Drug Resistant Organisms: None Reported Past Surgical History: Adenoidectomy, Section, Tonsillectomy Past Anesthesia/Blood Transfusion Reactions: Postoperative Nausea & Vomiting ( PONV) Past Psychological History: Anxiety, Depression Smoking Status: Current every day smoker Past Alcohol Use History: None Reported Past Drug Use History: None Reported - Past Family History Mother Family Medical History: Hypertension General Exam - General Exam Comments Initial Comments: GENERAL: Patient is well-developed and well-nourished. Patient is nontoxic and well- hydrated and is in mild distress. ENT: Neck is soft and supple. No significant lymphadenopathy is noted. Oropharynx is clear. Moist mucous membranes. Neck has full range of motion without eliciting any pain. Behind the left TM is a little bit of fluid. No redness no bulging. Patient's good light reflex. EYES: The sclera were anicteric and conjunctiva were pink and moist. Extraocular movements were intact and pupils were equal round and reactive to light. Eyelids were unremarkable. SKIN: Skin is clear with no lesions or rashes and otherwise unremarkable. NEUROLOGIC: Patient is alert and oriented x3. Cranial nerves II through XII are grossly intact. Motor and sensory are also intact. Normal speech, volume and content. Symmetrical smile. MUSCULOSKELETAL: Normal extremities with adequate strength and full range of motion. Patient's trapezius muscle is mildly tender to palpation LYMPHATICS: No significant lymphadenopathy is noted PSYCHIATRIC: Normal psychiatric evaluation. Limitations: no limitations Course Vital Signs 03/22/18 13:04 Temperature 98.0 F Pulse Rate 91 Respiratory 18 Rate Blood Pressure 186/96 O2 Sat by Pulse 98 Oximetry Medical Decision Making - Medical Decision Making EKG shows normal sinus rhythm at 61 bpm DE interval 164 QRS 106 QT interval 426 QTC is 428. Patient's EKG shows no ST segment elevation or depression or T- wave abdomen is noted. Patient received a shot of Toradol and Norflex and feels considerably better. Disposition Clinical Impression: Musculoskeletal pain Disposition: HOME SELF-CARE Condition: Good Prescriptions: Cyclobenzaprine [Flexeril] 10 mg PO TID #20 tab Ibuprofen [Motrin] 600 mg PO Q6HR PRN #20 tab PRN Reason: For pain Is patient prescribed a controlled substance at d/c from ED?: No Referrals: Galen Lizarraga MD [Primary Care Provider] - 1-2 days Time of Disposition: 14:30
[2018-03-22 14:37] VITALS: BP 148/84; PULSE 82; RESP 20
== END 2018-03-22 14:37 | disposition home or self-care (01) ==
LOC: EC 12:42
DX: M25.512 Pain in left shoulder (principal); H92.02 Otalgia, left ear; I10 Essential (primary) hypertension; F17.200 Nicotine dependence, unspecified, uncomplicated; Z88.0 Allergy status to penicillin; Z88.1 Allergy status to other antibiotic agents; Z79.899 Other long term (current) drug therapy
CPT/HCPCS: 99283; 96372 ×2; 93005; J2360; J1885

== ENCOUNTER 2022-02-20 14:58 | Emergency (ER) | payer BC, OTHER ==
[2022-02-20 15:22] VITALS: TEMP 98
[2022-02-20] MEDS ORDERED: SODIUM CHLORIDE 0.9% 1,000 ML IV STA (15:42)
[2022-02-20] MEDS ORDERED: LORazepam 2 MG/ML INJ IV STA (15:42)
--- NOTE | 2022-02-20 15:46 | ED ---
General Adult HPI - General Chief complaint: Chest Pain Stated complaint: Heart Palpitations, SoB Time Seen by Provider: 02/20/22 15:20 Source: patient, RN notes reviewed, old records reviewed Mode of arrival: ambulatory Limitations: no limitations - History of Present Illness Initial comments: This is a 36-year-old female presents emergency Department stating since then he's been having palpitations. Patient states her heart racing but today about 1:00 it started racing extremely fast she came to the emergency department. Patient states she also has a history of anxiety and this did make her extremely anxious. Patient states recently her primary medical care doctor told her her thyroid level was too high so he backed her down her thyroid medication. Patient states since this started though she stopped taking any of her thyroid medication. Patient denies any drug use. Patient denies any shortness of breath chest pain. Patient denies any lightheadedness or dizziness. Patient denies any headache. Patient denies any recent - Related Data Home Medications Medication Instructions Recorded Confirmed Lisinopril [Prinivil] 10 mg PO DAILY@1400 02/20/22 02/20/22 Allergies Allergy/AdvReac Type Severity Reaction Status Date / Time amoxicillin trihydrate Allergy Rash/Hives Verified 02/20/22 17:33 [From Augmentin] potassium clavulanate Allergy Rash/Hives Verified 02/20/22 17:33 [From Augmentin] Review of Systems ROS Statement: Those systems with pertinent positive or pertinent negative responses have been documented in the HPI. ROS Other: All systems not noted in ROS Statement are negative. Past Medical History Past Medical History: Hypertension, Thyroid Disorder History of Any Multi-Drug Resistant Organisms: None Reported Past Surgical History: Adenoidectomy, Section, Tonsillectomy Past Anesthesia/Blood Transfusion Reactions: Postoperative Nausea & Vomiting (PONV) Past Psychological History: Anxiety, Depression Smoking Status: Never smoker Past Alcohol Use History: None Reported Past Drug Use History: None Reported - Past Family History Mother Family Medical History: Hypertension General Exam - General Exam Comments Initial Comments: GENERAL: Patient is well-developed and well-nourished. Patient is nontoxic and well- hydrated and is in mild distress. ENT: Neck is soft and supple. No significant lymphadenopathy is noted. Oropharynx is clear. Moist mucous membranes. Neck has full range of motion without elici ting any pain. EYES: The sclera were anicteric and conjunctiva were pink and moist. Extraocular movements were intact and pupils were equal round and reactive to light. Eyelids were unremarkable. PULMONARY: Unlabored respirations. Good breath sounds bilaterally. No audible rales rhonchi or wheezing was noted. CARDIOVASCULAR: She is tachycardic at about 115 bpm it is regular. ABDOMEN: Soft and nontender with normal bowel sounds. SKIN: Skin is clear with no lesions or rashes and otherwise unremarkable. NEUROLOGIC: Patient is alert and oriented x3. Cranial nerves II through XII are grossly intact. Motor and sensory are also intact. Normal speech, volume and content. Symmetrical smile. MUSCULOSKELETAL: Normal extremities with adequate strength and full range of motion. LYMPHATICS: No significant lymphadenopathy is noted PSYCHIATRIC: Normal psychiatric evaluation. Limitations: no limitations Course Vital Signs 02/20/22 02/20/22 02/20/22 15:18 17:59 19:41 Temperature 98.0 F Pulse Rate 138 H 95 86 Respiratory 18 16 16 Rate Blood Pressure 179/104 163/59 142/80 O2 Sat by Pulse 98 96 100 Oximetry Medical Decision Making - Medical Decision Making EKG shows sinus tachycardia at 109 bpm NC interval 170 QRS is 190 QT interval 01/31/1970 QTC is 411. Patient's EKG shows no ST segment elevation or depression. Patient's heart rate ranged from 95 to about 110 in the emergency department. Patient got some Ativan and was feeling considerably better. Patient's TSH extremely low indicating that her thyroid levels are elevated. I spoke with Dr. Lizarraga he agreed to follow-up the patient as an outpatient. Patient states she would not take anymore of her thyroid medication. - Lab Data Result diagrams: 02/20/22 16:01 02/20/22 16:01 Lab Results 02/20/22 02/20/22 02/20/22 Range/Units 16:01 16:01 16:01 WBC 3.4 L (3.8-10.6) k/uL RBC 4.96 (3.80-5.40) m/uL Hgb 11.8 (11.4-16.0) gm/dL Hct 37.8 (34.0-46.0) % MCV 76.2 L (80.0-100.0) fL MCH 23.7 L (25.0-35.0) pg MCHC 31.1 (31.0-37.0) g/dL RDW 14.8 (11.5-15.5) % Plt Count 213 (150-450) k/uL MPV 9.1 Neutrophils % 64 % Lymphocytes % 23 % Monocytes % 9 % Eosinophils % 2 % Basophils % 1 % Neutrophils # 2.2 (1.3-7.7) k/uL Lymphocytes # 0.8 L (1.0-4.8) k/uL Monocytes # 0.3 (0-1.0) k/uL Eosinophils # 0.1 (0-0.7) k/uL Basophils # 0.0 (0-0.2) k/uL Hypochromasia Slight Microcytosis Slight PT 10.3 (9.0-12.0) sec INR 0.9 (<1.2) APTT 22.6 (22.0-30.0) sec Sodium 140 (137-145) mmol/L Potassium 4.0 (3.5-5.1) mmol/L Chloride 106 (98-107) mmol/L Carbon Dioxide 25 (22-30) mmol/L Anion Gap 9 mmol/L BUN 10 (7-17) mg/dL Creatinine 0.62 (0.52-1.04) mg/dL Est GFR (CKD-EPI)AfAm >90 (>60 ml/min/1.73 sqM) Est GFR (CKD-EPI)NonAf >90 (>60 ml/min/1.73 sqM) Glucose 145 H (74-99) mg/dL Calcium 8.9 (8.4-10.2) mg/dL Magnesium 1.9 (1.6-2.3) mg/dL Total Bilirubin 0.5 (0.2-1.3) mg/dL AST 34 (14-36) U/L ALT 44 H (4-34) U/L Alkaline Phosphatase 54 (38-126) U/L Troponin I (0.000-0.034) ng/mL Total Protein 6.9 (6.3-8.2) g/dL Albumin 3.9 (3.5-5.0) g/dL TSH <0.015 L (0.465-4.680) mIU/L Free T4 (0.78-2.19) ng/dL Urine Color Urine Appearance (Clear) Urine pH (5.0-8.0) Ur Specific [place] (1.001-1.035) Urine Protein (Negative) Urine Glucose (UA) (Negative) Urine Ketones (Negative) Urine Blood (Negative) Urine Nitrite (Negative) Urine Bilirubin (Negative) Urine Urobilinogen (<2.0) mg/dL Ur Leukocyte Esterase (Negative) Urine RBC (0-5) /hpf Urine WBC (0-5) /hpf Ur Squamous Epith Cells (0-4) /hpf Urine Yeast (Budding) (None) /hpf Urine Opiates Screen (NotDetected) Ur Oxycodone Screen (NotDetected) Urine Methadone Screen (NotDetected) Ur Propoxyphene Screen (NotDetected) Ur Barbiturates Screen (NotDetected) U Tricyclic Antidepress (NotDetected) Ur Phencyclidine Scrn (NotDetected) Ur Amphetamines Screen (NotDetected) U Methamphetamines Scrn (NotDetected) U Benzodiazepines Scrn (NotDetected) Urine Cocaine Screen (NotDetected) U Marijuana (THC) Screen (NotDetected) 02/20/22 02/20/22 02/20/22 Range/Units 16:01 16:01 16:16 WBC (3.8-10.6) k/uL RBC (3.80-5.40) m/uL Hgb (11.4-16.0) gm/dL Hct (34.0-46.0) % MCV (80.0-100.0) fL MCH (25.0-35.0) pg MCHC (31.0-37.0) g/dL RDW (11.5-15.5) % Plt Count (150-450) k/uL MPV Neutrophils % % Lymphocytes % % Monocytes % % Eosinophils % % Basophils % % Neutrophils # (1.3-7.7) k/uL Lymphocytes # (1.0-4.8) k/uL Monocytes # (0-1.0) k/uL Eosinophils # (0-0.7) k/uL Basophils # (0-0.2) k/uL Hypochromasia Microcytosis PT (9.0-12.0) sec INR (<1.2) APTT (22.0-30.0) sec Sodium (137-145) mmol/L Potassium (3.5-5.1) mmol/L Chloride (98-107) mmol/L Carbon Dioxide (22-30) mmol/L Anion Gap mmol/L BUN (7-17) mg/dL Creatinine (0.52-1.04) mg/dL Est GFR (CKD-EPI)AfAm (>60 ml/min/1.73 sqM) Est GFR (CKD-EPI)NonAf (>60 ml/min/1.73 sqM) Glucose (74-99) mg/dL Calcium (8.4-10.2) mg/dL Magnesium (1.6-2.3) mg/dL Total Bilirubin (0.2-1.3) mg/dL AST (14-36) U/L ALT (4-34) U/L Alkaline Phosphatase (38-126) U/L Troponin I <0.012 (0.000-0.034) ng/mL Total Protein (6.3-8.2) g/dL Albumin (3.5-5.0) g/dL TSH (0.465-4.680) mIU/L Free T4 5.69 H (0.78-2.19) ng/dL Urine Color Light Red Urine Appearance Clear (Clear) Urine pH 7.0 (5.0-8.0) Ur Specific [place] 1.014 (1.001-1.035) Urine Protein 1+ H (Negative) Urine Glucose (UA) 1+ H (Negative) Urine Ketones Negative (Negative) Urine Blood Large H (Negative) Urine Nitrite Negative (Negative) Urine Bilirubin Negative (Negative) Urine Urobilinogen <2.0 (<2.0) mg/dL Ur Leukocyte Esterase Large H (Negative) Urine RBC >182 H (0-5) /hpf Urine WBC 53 H (0-5) /hpf Ur Squamous Epith Cells 3 (0-4) /hpf Urine Yeast (Budding) Few H (None) /hpf Urine Opiates Screen Not Detected (NotDetected) Ur Oxycodone Screen Not Detected (NotDetected) Urine Methadone Screen Not Detected (NotDetected) Ur Propoxyphene Screen Not Detected (NotDetected) Ur Barbiturates Screen Not Detected (NotDetected) U Tricyclic Antidepress Not Detected (NotDetected) Ur Phencyclidine Scrn Not Detected (NotDetected) Ur Amphetamines Screen Not Detected (NotDetected) U Methamphetamines Scrn Not Detected (NotDetected) U Benzodiazepines Scrn Not Detected (NotDetected) Urine Cocaine Screen Not Detected (NotDetected) U Marijuana (THC) Screen Not Detected (NotDetected) Disposition Clinical Impression: Palpitations, Hyperthyroidism Disposition: HOME SELF-CARE Condition: Good Instructions (If sedation given, give patient instructions): Heart Palpitations (ED) Additional Instructions: Patient should stop taking her thyroid medication until she follows up with her primary medical care doctor Is patient prescribed a controlled substance at d/c from ED?: No Referrals: Galen Lizarraga MD [Primary Care Provider] - 1-2 days Time of Disposition: 17:21
[2022-02-20 16:12] LABS: Basophils % (A) 1 %; Eosinophils # (A) 0.1 k/uL (0-0.7); Eosinophils % (A) 2 %; HCT 37.8 % (34.0-46.0); HGB 11.8 gm/dL (11.4-16.0); Hypochromasia Slight; Lymphocytes # (A) 0.8 k/uL (1.0-4.8); Lymphocytes % (A) 23 %; MCH 23.7 pg (25.0-35.0); MCHC 31.1 g/dL (31.0-37.0); MCV 76.2 fL (80.0-100.0); Mean Platelet Volume 9.1; Microcytosis Slight; Monocytes # (A) 0.3 k/uL (0-1.0); Monocytes % (A) 9 %; Neutrophils # (A) 2.2 k/uL (1.3-7.7); Neutrophils % (A) 64 %; Platelet Count 213 k/uL (150-450); RBC 4.96 m/uL (3.80-5.40); RDW 14.8 % (11.5-15.5); WBC 3.4 k/uL (3.8-10.6)
[2022-02-20 16:20] LABS: INR 0.9 (<1.2); Partial Thromboplastin Time 22.6 sec (22.0-30.0); Prothrombin Time 10.3 sec (9.0-12.0)
[2022-02-20 16:22] LABS: African American GFR (CKD) >90 (>60 ml/min/1.73 sqM); Anion Gap 9 mmol/L; Blood Urea Nitrogen 10 mg/dL (7-17); Carbon Dioxide 25 mmol/L (22-30); Chloride 106 mmol/L (98-107); Glucose 145 mg/dL (74-99); Sodium 140 mmol/L (137-145)
[2022-02-20 16:23] LABS: ALT 44 U/L (4-34); AST 34 U/L (14-36); Albumin 3.9 g/dL (3.5-5.0); Alkaline Phosphatase 54 U/L (38-126); Calcium 8.9 mg/dL (8.4-10.2); Magnesium 1.9 mg/dL (1.6-2.3); Non-African American GFR(CKD) >90 (>60 ml/min/1.73 sqM); Total Bilirubin 0.5 mg/dL (0.2-1.3); Total Protein 6.9 g/dL (6.3-8.2)
[2022-02-20 16:33] LABS: Appearance,Urine Clear (Clear); Bilirubin,Urine Negative (Negative); Blood,Urine Large (Negative); Budding Yeast,Urine Few /hpf; Color,Urine Light Red; Glucose,Urine (UA) 1+ (Negative); Ketones,Urine Negative (Negative); Leukocyte Esterase,Urine Large (Negative); Nitrite,Urine Negative (Negative); Protein,Urine 1+ (Negative); RBC,Urine >182 /hpf (0-5); Specific Gravity,Urine 1.014 (1.001-1.035); Squamous Epithelial Cell,Urine 3 /hpf (0-4); Urobilinogen,Urine <2.0 mg/dL (<2.0); WBC,Urine 53 /hpf (0-5)
[2022-02-20 16:37] LABS: Amphetamine Screen,Urine Not Detected (NotDetected); Barbiturate Screen,Urine Not Detected (NotDetected); Benzodiazepines Screen,Urine Not Detected (NotDetected); Cocaine Screen,Urine Not Detected (NotDetected); Methadone Screen, Urine Not Detected (NotDetected); Opiate Screen,Urine Not Detected (NotDetected); Oxycodone Screen, Urine Not Detected (NotDetected); Phencyclidine Screen,Urine Not Detected (NotDetected); Tricyclic Antidepressant,Urine Not Detected (NotDetected); Urn Cannabinoid Scrn Not Detected (NotDetected)
--- NOTE | 2022-02-20 16:44 | XR ---
EXAMINATION TYPE: XR chest 2V DATE OF EXAM: 02/20/2022 4:37 PM COMPARISON: 08/01/2017 TECHNIQUE: XR chest 2V Frontal and lateral views of the chest. CLINICAL INDICATION:Female, 36 years old with history of dysrhythmia; FINDINGS: Lungs/Pleura: There is no evidence of pleural effusion, focal consolidation, or pneumothorax. Pulmonary vascularity: Unremarkable. Heart/mediastinum: Cardiomediastinal silhouette is unremarkable. Musculoskeletal: No acute osseous pathology. IMPRESSION: No acute cardiopulmonary disease/process.
[2022-02-20] MEDS ORDERED: LABETALOL 5 MG/ML VIAL MDV IVP STA (17:22)
[2022-02-20 18:00] VITALS: RESP 16
[2022-02-20 19:43] VITALS: BP 142/80; PULSE 86
== END 2022-02-20 20:29 | disposition home or self-care (01) ==
LOC: EC 14:58
DX: E05.90 Thyrotoxicosis, unspecified without thyrotoxic crisis or storm (principal); I10 Essential (primary) hypertension; Z79.899 Other long term (current) drug therapy
CPT/HCPCS: 36415; 93005; 84439; 80053; 83735; 84443; 84484; 85025; 85610; 85730; 81001; 80306; 71046; 99285; 96374; J2060

== ENCOUNTER 2023-10-09 11:06 | Emergency (ER) | payer OTHER, BC ==
[2023-10-09 11:59] VITALS: RESP 18; TEMP 98.5
[2023-10-09 13:38] LABS: HCT 35.8 % (34.0-46.0); HGB 11.6 gm/dL (11.4-16.0); Hypochromasia Slight; MCHC 32.5 g/dL (31.0-37.0); MCV 73.7 fL (80.0-100.0); Mean Platelet Volume 7.7; Microcytosis Slight; Platelet Count 213 k/uL (150-450); RBC 4.85 m/uL (3.80-5.40); RDW 14.4 % (11.5-15.5); WBC 9.5 k/uL (3.8-10.6)
[2023-10-09 13:46] LABS: ALT 16 U/L (4-34); AST 21 U/L (14-36); African American GFR (CKD) >90 (>60 ml/min/1.73 sqM); Albumin 4.5 g/dL (3.5-5.0); Alkaline Phosphatase 55 U/L (38-126); Anion Gap 11 mmol/L; Blood Urea Nitrogen 11 mg/dL (7-17); Calcium 9.2 mg/dL (8.4-10.2); Carbon Dioxide 23 mmol/L (22-30); Chloride 105 mmol/L (98-107); Glucose 93 mg/dL (74-99); Non-African American GFR(CKD) >90 (>60 ml/min/1.73 sqM); Potassium 3.9 mmol/L (3.5-5.1); Sodium 139 mmol/L (137-145); Total Bilirubin 0.5 mg/dL (0.2-1.3); Total Protein 7.5 g/dL (6.3-8.2)
--- NOTE | 2023-10-09 13:58 | XR ---
EXAMINATION TYPE: XR chest 2V DATE OF EXAM: 10/09/2023 COMPARISON: 01/29/2023 INDICATION: Shortness of breath TECHNIQUE: Frontal and lateral views of the chest are obtained. FINDINGS: The heart size is normal. The pulmonary vasculature is normal. The lungs are clear. IMPRESSION: 1. No acute pulmonary process.
--- NOTE | 2023-10-09 14:00 | ED ---
General Adult HPI - General Chief complaint: Recheck/Abnormal Lab/Rx Stated complaint: breathed in chemicals at work sob Time Seen by Provider: 10/09/23 13:02 Source: patient, RN notes reviewed Mode of arrival: wheelchair Limitations: no limitations - History of Present Illness Initial comments: Patient is a 38-year-old female presenting here with chief complaint of shortness of breath. 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 She states she tried to get up and walk around and her symptoms worsened. She also complains of epigastric pain which radiates to her back. Patient states the pain is worse when she takes a deep breath. Patient states she does have a history of GERD. Patient denies any chest pain, injury, abdominal pain, constipation/diarrhea, urinary symptoms. - Related Data Home Medications Medication Instructions Recorded Confirmed lisinopriL [Prinivil] 10 mg PO DAILY 02/20/22 10/09/23 Allergies Allergy/AdvReac Type Severity Reaction Status Date / Time amoxicillin trihydrate Allergy Rash/Hives Verified 10/09/23 12:18 [From Augmentin] potassium clavulanate Allergy Rash/Hives Verified 10/09/23 12:18 [From Augmentin] Review of Systems ROS Statement: Those systems with pertinent positive or pertinent negative responses have been documented in the HPI. ROS Other: All systems not noted in ROS Statement are negative. Past Medical History Past Medical History: Hypertension, Thyroid Disorder History of Any Multi-Drug Resistant Organisms: None Reported Past Surgical History: Adenoidectomy, Section, Tonsillectomy Past Anesthesia/Blood Transfusion Reactions: Postoperative Nausea & Vomiting (PONV) Past Psychological History: Anxiety, Depression Smoking Status: Never smoker Past Alcohol Use History: None Reported Past Drug Use History: None Reported - Past Family History Mother Family Medical History: Hypertension General Exam Limitations: no limitations General appearance: alert, in no apparent distress ENT exam: Present: normal exam, mucous membranes moist Respiratory exam: Present: normal lung sounds bilaterally. Absent: respiratory distress, wheezes, rales, rhonchi, stridor Cardiovascular Exam: Present: regular rate, normal rhythm, normal heart sounds. Absent: systolic murmur, diastolic murmur, rubs, gallop, clicks GI/Abdominal exam: Present: soft, tenderness (epigastric region), normal bowel sounds. Absent: distended, guarding, rebound, rigid Neurological exam: Present: alert, oriented X3, CN II-XII intact Psychiatric exam: Present: normal affect, normal mood Skin exam: Present: warm, dry, intact, normal color. Absent: rash Course Vital Signs 10/09/23 11:44 Temperature 98.5 F Pulse Rate 67 Respiratory 18 Rate Blood Pressure 159/91 O2 Sat by Pulse 100 Oximetry Medical Decision Making - Medical Decision Making Was pt. sent in by a medical professional or institution (, PA, SECURITY PROJECT MANAGER, urgent care, hospital, or fci...) When possible be specific @ -No Did you speak to anyone other than the patient for history (EMS, parent, family, police, friend...)? What history was obtained from this source @ -No Did you review nursing and triage notes (agree or disagree)? Why? @ -I reviewed and agree with nursing and triage notes Were old charts reviewed (outside hosp., previous admission, EMS record, old EKG, old radiological studies, urgent care reports/EKG's, fci records)? Report findings @ -No old charts were reviewed Differential Diagnosis (chest pain, altered mental status, abdominal pain women, abdominal pain men, vaginal bleeding, weakness, fever, dyspnea, syncope, headache, dizziness, GI bleed, back pain, seizure, CVA, palpatations, mental health, musculoskeletal)? @ -Differential Dyspnea: Coronary syndrome, arrhythmia, tamponade, asthma, COPD, pulmonary embolism, pneumonia, pneumothorax, pulmonary effusion, anaphylaxis, diabetic ketoacidosis, flailed chest, pulmonary contusion, diaphragmatic rupture, anemia, neuromuscular, this is not meant to be an all-inclusive list. EKG interpreted by me (3pts min.). @ -As above X-rays interpreted by me (1pt min.). @ -Chest x-ray was negative for any acute cardiopulmonary processes. CT interpreted by me (1pt min.). @ -None done U/S interpreted by me (1pt. min.). @ -None done What testing was considered but not performed or refused? (CT, X-rays, U/S, labs)? Why? @ -None What meds were considered but not given or refused? Why? @ -None Did you discuss the management of the patient with other professionals (profwindy cordero i.e., Dr., PA, SECURITY PROJECT MANAGER, lab, RT, psych nurse, social scientist, retail pricing coordinator, teacher, antisubmarine weapons officer, telephonic nurse case manager)? Give summary @ -No Was smoking cessation discussed for >3mins.? @ -No Was critical care preformed (if so, how long)? @ -No Were there social determinants of health that impacted care today? How? (Homelessness, low income, unemployed, alcoholism, drug addiction, transportation, low edu. Level, literacy, decrease access to med. care, long term, rehab)? @ -No Was there de-escalation of care discussed even if they declined (Discuss DNR or withdrawal of care, Hospice)? DNR status @ -No What co-morbidities impacted this encounter? (DM, HTN, Smoking, COPD, CAD, Cancer, CVA, ARF, Chemo, Hep., AIDS, mental health diagnosis, sleep apnea, morbid obesity)? @ -None Was patient admitted / discharged? Hospital course, mention meds given and route, prescriptions, significant lab abnormalities, going to OR and other pertinent info. @ -Discharged. Labs in the ER were within normal limits. EKG showed sinus bradycardia with sinus arrhythmia and no acute T-wave abnormalities were present. Chest x-ray was negative for any acute cardiopulmonary processes. Patient will be discharged in stable condition with follow-up to PCP. I discussed with the patient possible [id number] treatment options like Prilosec or Nexium as this may be GERD. I also educated patient on return parameters and if any symptoms worsen or return. Patient expressed un derstanding and agreement with the care plan. Undiagnosed new problem with uncertain prognosis? @ -No Drug Therapy requiring intensive monitoring for toxicity (Heparin, Nitro, Insulin, Cardizem)? @ -No Were any procedures done? @ -No Diagnosis/symptom? @ -Epigastric pain/shortness of breath Acute, or Chronic, or Acute on Chronic? @ -Acute Uncomplicated (without systemic symptoms) or Complicated (systemic symptoms)? @ -Uncomplicated Side effects of treatment? @ -No Exacerbation, Progression, or Severe Exacerbation? @ -No Poses a threat to life or bodily function? How? (Chest pain, USA, PA, pneumonia, PE, COPD, DKA, ARF, appy, cholecystitis, CVA, Diverticulitis, Homicidal, Suicidal, threat to staff... and all critical care pts) @ -No - Lab Data Result diagrams: 10/09/23 13:13 10/09/23 13:13 Lab Results 10/09/23 10/09/23 10/09/23 Range/Units 13:13 13:13 13:13 WBC 9.5 (3.8-10.6) k/uL RBC 4.85 (3.80-5.40) m/uL Hgb 11.6 (11.4-16.0) gm/dL Hct 35.8 (34.0-46.0) % MCV 73.7 L (80.0-100.0) fL MCH 24.0 L (25.0-35.0) pg MCHC 32.5 (31.0-37.0) g/dL RDW 14.4 (11.5-15.5) % Plt Count 213 (150-450) k/uL MPV 7.7 Hypochromasia Slight Microcytosis Slight Sodium 139 (137-145) mmol/L Potassium 3.9 (3.5-5.1) mmol/L Chloride 105 (98-107) mmol/L Carbon Dioxide 23 (22-30) mmol/L Anion Gap 11 mmol/L BUN 11 (7-17) mg/dL Creatinine 0.59 (0.52-1.04) mg/dL Est GFR (CKD-EPI)AfAm >90 (>60 ml/min/1.73 sqM) Est GFR (CKD-EPI)NonAf >90 (>60 ml/min/1.73 sqM) Glucose 93 (74-99) mg/dL Calcium 9.2 (8.4-10.2) mg/dL Total Bilirubin 0.5 (0.2-1.3) mg/dL AST 21 (14-36) U/L ALT 16 (4-34) U/L Alkaline Phosphatase 55 (38-126) U/L Troponin I <0.012 (0.000-0.034) ng/mL Total Protein 7.5 (6.3-8.2) g/dL Albumin 4.5 (3.5-5.0) g/dL - EKG Data -: EKG Interpreted by Pa EKG Comments: EKG taken at 13:17. Shows sinus bradycardia with sinus arrhythmia noted. There is no acute T-wave abnormalities. Ventricular rate 58, RI interval 164, QRS duration 110, QT/QTc 426/423. - Radiology Data Radiology results: report reviewed, image reviewed Disposition Clinical Impression: Shortness of breath Disposition: HOME SELF-CARE Condition: Stable Additional Instructions: Please return to the Emergency Department if symptoms worsen or any other concerns. Is patient prescribed a controlled substance at d/c from ED?: No Referrals: Galen Lizarraga MD [Primary Care Provider] - 1-2 days Time of Disposition: 14:15
[2023-10-09 14:27] VITALS: BP 154/97; PULSE 65
== END 2023-10-09 14:26 | disposition home or self-care (01) ==
LOC: EC 11:06
DX: R06.02 Shortness of breath (principal); R00.1 Bradycardia, unspecified; I10 Essential (primary) hypertension; F41.9 Anxiety disorder, unspecified; F32.A Depression, unspecified; Z88.0 Allergy status to penicillin; Z79.899 Other long term (current) drug therapy
CPT/HCPCS: 36415; 71046; 80053; 84484; 85027; 93005; 99285

== ENCOUNTER → 2023-10-27 | Outpatient (CLI) | payer BC ==
--- NOTE | 2023-10-27 09:19 | US ---
EXAMINATION TYPE: US abdomen complete DATE OF EXAM: 10/27/2023 COMPARISON: NONE CLINICAL INDICATION: Female, 38 years old with history of R10.84 GENERALIZED ABDOMINAL PAIN; Patient states having stomach issues such as unable to eat as much and bloating. TECHNIQUE: Multiple sonographic images of the abdomen are obtained. FINDINGS: EXAM MEASUREMENTS: Liver Length: 17.7 cm Gallbladder Wall: 0.1 cm CBD: 0.4 cm Spleen: 14.5 cm Right Kidney: 11.8 x 4.8 x 4.0 cm Left Kidney: 11.3 x 5.1 x 4.2 cm MANAGER GENERAL NOTES: Suboptimal due to patient body habitus Pancreas: Echogenic in appearance, tail obscured by overlying bowel gas Liver: Echogenic in appearance, upper limits of normal Gallbladder: No stones, wall thickening or sludge Evidence for sonographic Grier's sign: neg CBD: wnl Spleen: Enlarged in size Right Kidney: Medial anechoic lesion at hilum - 1.7 x 1.0 cm Left Kidney: No hydronephrosis or masses seen Upper IVC: wnl Abd Aorta: no AAA visualized at time of scan The liver is homogenous. The intrahepatic portion of the IVC and proximal abdominal aorta are within normal limits. There is no evidence of cholelithiasis. Common bile duct is unremarkable. The visu alized portions of the pancreas are homogenous. The spleen is unremarkable. Kidneys are symmetric a nd free of hydronephrosis. No renal lesions are seen. IMPRESSION: 1. No evidence for acute process. 2. Simple appearing right renal cyst.
--- NOTE | 2023-10-27 10:42 | FL ---
EXAMINATION TYPE: FL UGI w esophagus w sm bowel DATE OF EXAM: 10/27/2023 10:31 AM CLINICAL INDICATION:Female, 38 years old with history of R10.84 ABD PAIN; COMPARISON: Chest radiograph 10/09/2023. TECHNIQUE: The procedure was explained and patient history elicited. All patient questions were ans wered prior to start of procedure. A humanities department chair radiograph of the abdomen was also reviewed. Multiple flu oroscopic spot images of the esophagus, stomach and duodenum were obtained following ingestion of liq uid barium and EZ-gas crystals. After the completion of the upper gastrointestinal examination, a de tailed small bowel examination was performed. The patient was asked to ingest additional liquid pedro um and incremental frontal abdominal radiographs were then taken until contrast was visualized in the cecum. Fluoroscopic time: 1 minute 20 seconds Fluoroscopic images: 0 Radiographs taken: 144 DAP: Not reported [id number] FINDINGS: Upper GI examination: The esophagus appears unremarkable without evidence of focal stricture, ulceration or abnormal outpou david. No hiatal hernia was visualized. Gastroesophageal reflux was identified.. The stomach and du odenum demonstrate a normal course and contour. There is no evidence of focal gastric or duodenal ul ceration, stricture, or abnormal outpouching. Small bowel mucosal folds are felt to be within normal limits. Detailed small bowel examination: Contrast is seen extending from the duodenojejunal junction into the cecum after two hours, which is within the expected time period. The small bowel follows normal distribution and contour without any evidence of extraluminal or intraluminal irregularity. There is no displacement of bowel loops or e xtraluminal extravasation of contrast material. IMPRESSION: 1. Small gastroesophageal reflux. Otherwise, Normal upper gastrointestinal examination. 2. Normal detailed small bowel examination.
== END | disposition home or self-care (01) ==
LOC: RADUSWWP 07:39
PROVIDERS: ATTEND Family Medicine
DX: N28.1 Cyst of kidney, acquired (principal); K21.9 Gastro-esophageal reflux disease without esophagitis
CPT/HCPCS: 74240; 74248; 76700

== ENCOUNTER → 2024-06-21 | Outpatient (CLI) | payer BC ==
--- NOTE | 2024-06-21 16:53 | CA ---
Transthoracic Echo Report Name: Estephania Stevens Age: 38 Gender: F : 1985 Exam Date: 06/21/2024 13:41 Exam Location: [facility] Ht (in): 65 Wt (lb): 270 Ordering Physician: Galen Lizarraga MD Attending/Referring Phys: Cup Machine Operator Lakshmi Lagos RDCS Procedure CPT: Indications: R06.00 Dyspnea Cardiac Hx: Technical Quality: Fair Contrast 1: Total Dose (mL): Contrast 2: Total Dose (mL): MEASUREMENTS (Male / Female) Normal Values 2D ECHO LV Diastolic Diameter PLAX 4.9 cm 4.2 - 5.9 / 3.9 - 5.3 cm LV Systolic Diameter PLAX 3.4 cm IVS Diastolic Thickness 0.9 cm 0.6 - 1.0 / 0.6 - 0.9 cm LVPW Diastolic Thickness 0.9 cm 0.6 - 1.0 / 0.6 - 0.9 cm LV Relative Wall Thickness 0.4 RV Internal Dim ED PLAX 3.2 cm LA Systolic Diameter LX 3.6 cm 3.0 - 4.0 / 2.7 - 3.8 cm LV Diastolic Volume MOD 4C 134.2 cm??? LV Systolic Volume MOD 4C 58.1 cm??? LV Ejection Fraction MOD 4C 56.7 % LV Cardiac Index MOD 4C 1812.0 cm???/min???m??? LV Diastolic Length 4C 8.7 cm LV Systolic Length 4C 7.0 cm LV Diastolic Volume MOD 2C 119.2 cm??? LV Systolic Volume MOD 2C 38.3 cm??? LV Ejection Fraction MOD 2C 67.9 % LV Cardiac Index MOD 2C 1924.7 cm???/min???m??? LV Diastolic Length 2C 8.5 cm LV Systolic Length 2C 6.3 cm LA Volume 42.8 cm??? 18 - 58 / 22 - 52 cm??? LA Volume Index 17.5 cm???/m??? 16 - 28 cm???/m??? M-MODE Aortic Root Diameter MM 3.3 cm AV Cusp Separation MM 2.4 cm DOPPLER AV Peak Velocity 150.8 cm/s AV Peak Gradient 9.1 mmHg MV Area PHT 4.1 cm??? Mitral E Point Velocity 117.1 cm/s Mitral A Point Velocity 109.5 cm/s Mitral E to A Ratio 1.1 MV Deceleration Time 185.9 ms FINDINGS Left Ventricle Left ventricular ejection fraction is estimated at 55-60 %. Left ventricular cavity size normal. Left ventricular wall thickness normal. Right Ventricle Normal right ventricular size. Unable to estimate the right ventricular systolic pressure. Right Atrium Normal right atrial size. No right atrial thrombus or mass seen. Left Atrium Normal left atrial size. No left atrial thrombus or mass present. Mitral Valve Structurally normal mitral valve. No mitral stenosis, regurgitation or prolapse. Aortic Valve Trileaflet aortic valve. No aortic valve stenosis or regurgitation. Tricuspid Valve Structurally normal tricuspid valve. No tricuspid stenosis, regurgitation or prolapse. Pulmonic Valve Structurally normal pulmonic valve. No pulmonic regurgitation. Pericardium No pericardial effusion. No pleural effusion. Aorta Normal size aortic root and proximal ascending aorta. CONCLUSIONS Normal LV function Previewed by: Dr. Nickolas Uribe MD (Electronically Signed) Final Date: 21 June 2024 16:52
== END | disposition home or self-care (01) ==
LOC: RADECHMAIN 13:23
PROVIDERS: ATTEND Family Medicine
DX: R06.00 Dyspnea, unspecified (principal)
CPT/HCPCS: 93306

== ENCOUNTER 2024-07-23 05:18 | Emergency (ER) | payer BC ==
[2024-07-23] MEDS ORDERED: SODIUM CHLORIDE 0.9% 1,000 ML BAG ONE (07:30)
--- NOTE | 2024-08-20 10:17 | XR ---
[facility] - Radiology Report Patient: Estephania Torres E Ordering Physician: Unknown, Unknown ID: [id number] Phone, Pager: Phone: N/A Pager: N/A : 1985 Age/Gender: 38Y, F Primary Location: N/A Procedure: XR chest 2V Study Date: 07/23/2024 9:51:00 AM EXAMINATION TYPE: XR chest 1V DATE OF EXAM: 07/23/2024 COMPARISON: NONE HISTORY: Chest pain TECHNIQUE: Single frontal view of the chest is obtained. FINDINGS: There is no focal air space opacity, pleural effusion, or pneumothorax seen. The cardiac silhouette size is within normal limits. The osseous structures are intact. IMPRESSION: 1. No acute process.
== END 2024-07-23 16:00 | disposition home or self-care (01) ==
LOC: EC 05:18
DX: E05.90 Thyrotoxicosis, unspecified without thyrotoxic crisis or storm (principal)
CPT/HCPCS: 36415; 71046; 84481; 93005; 96360; 99283

== ENCOUNTER → 2024-10-07 | Outpatient (CLI) | payer BC ==
--- NOTE | 2024-10-08 22:52 | US ---
EXAMINATION TYPE: US thyroid st tissue head/neck DATE OF EXAM: 10/07/2024 COMPARISON: NONE CLINICAL INDICATION: Female, 39 years old with history of R94.6 [facility] LTHYROID LABS; patient denies any other signs, symptoms, or relevant history - have been changing medications since august but has had irregular thyroid levels x 20 years TECHNIQUE: Grayscale and color Doppler imaging of the thyroid gland. FINDINGS: GLAND SIZE: Right Lobe: 6.7 x 2.0 x 2.3 cm Overall Parenchyma: heterogeneous Left Lobe: 5.9 x 1.5 x 2.2 cm Overall Parenchyma: heterogeneous Isthmus Thickness: 1.0 cm NODULES RIGHT: # of nodules measured on right: 0 Heterogenous and irregular ? nodule vs irregular thyroid tissue LEFT: # of nodules measured on left: 0 Heterogenous and irregular ? nodule vs irregular thyroid tissue ISTHMUS: # of nodules measured in the isthmus: 0 Bilateral neck scanned, no evidence of lymphadenopathy. IMPRESSION: Correlate for thyroid goiter. 2017 ACR TI-RADS LEVEL: *Highest TI-RADS level nodule reported [email or web address] [facility], , 10/08/2024 10:50 PM
== END | disposition home or self-care (01) ==
LOC: RADUSWWP 09-06 15:23
PROVIDERS: ATTEND Family Medicine
DX: E04.1 Nontoxic single thyroid nodule (principal); R94.6 Abnormal results of thyroid function studies
CPT/HCPCS: 76536